=== PATIENT | female | born 1990 | race Caucasian/White ===

== ENCOUNTER 2018-02-16 04:34 | Emergency (ER) | payer MEDICAID ==
[2018-02-16] MEDS: HYDROCODONE/APAP (5/325) TAB PO (06:59)
[2018-02-16] MEDS: DIPHTH/TET/ACEL PERTUSS (ADULT) 0.5 ML VIAL IM* (07:00)
[2018-02-16] MEDS: LIDOCAINE 1% (MDV) 20 ML INJ SC (07:26)
== END 2018-02-16 08:57 | disposition home or self-care (01) ==
LOC: FTE 04:34
DX: S51.012A Laceration without foreign body of left elbow, initial encounter (principal); S80.12XA Contusion of left lower leg, initial encounter; S80.11XA Contusion of right lower leg, initial encounter; V49.49XA Driver injured in collision with other motor vehicles in traffic accident, initial encounter; Z23 Encounter for immunization
CPT/HCPCS: 73080; 90471; 90715; 99284-25

== ENCOUNTER 2019-05-09 22:05 | Emergency (ER) | payer MEDICAID ==
[2019-05-09] MEDS ORDERED: KETOROLAC 30 MG INJ IV (22:50)
[2019-05-09] MEDS: IBUPROFEN 800 MG TAB PO ×2 (22:53→23:13)
[2019-05-09] MEDS ORDERED: SOD CHLORIDE 0.9% 1,000 ML IV (23:00)
[2019-05-09] MEDS: ACETAMINOPHEN 500 MG TAB PO (23:12)
[2019-05-09] MEDS: DEXAMETHASONE 10 MG/ML 1 ML INJ IM (23:13)
[2019-05-09] MEDS: ONDANSETRON (ODT) 4 MG TAB ODT (23:13)
[2019-05-09] MEDS: CEFTRIAXONE 1 GM INJ IM (23:13)
[2019-05-09 23:24] LABS: ADD UMIC YES; UR ASCORBIC ACID NEGATIVE (NEGATIVE); UR BACTERIA FEW /HPF (NONE SEEN); UR BILIRUBIN (Dip) NEGATIVE (NEGATIVE); UR BLOOD (Dip) 1+ mg/dL (NEGATIVE); UR CLARITY CLEAR (CLEAR); UR COLOR STRAW (YELLOW); UR GLUCOSE (Dip) NEGATIVE (NEGATIVE); UR KETONES (Dip) NEGATIVE (NEGATIVE); UR LEUKOCYTE ESTERASE (Dip) NEGATIVE Leu/ul (NEGATIVE); UR NITRITE (Dip) NEGATIVE (NEGATIVE); UR RBC 0 /HPF (0-5); UR SPECIFIC GRAVITY (Dip) 1.009 (1.003-1.030); UR SQUAMOUS EPITHELIAL CELL FEW /HPF (FEW); UR TOTAL PROTEIN (Dip) NEGATIVE (NEGATIVE); UR UROBILINOGEN (Dip) NEGATIVE (NEGATIVE); UR WBC 1 /HPF (0-5)
== END 2019-05-10 00:45 | disposition home or self-care (01) ==
LOC: FTE 05-10 00:45
DX: J03.90 Acute tonsillitis, unspecified (principal); J02.9 Acute pharyngitis, unspecified
CPT/HCPCS: 81001; 81025; 96372; 99284-25